=== PATIENT | female | born 1995 | race Caucasian/White ===

== ENCOUNTER → 2017-05-28 | Outpatient (CLI) | payer OTHER ==
[2017-05-28 12:26] LABS: URINE APPEARANCE CLEAR (CLEAR); URINE BILIRUBIN NEG (NEG); URINE COLOR DK YELLOW; URINE EPITHELIAL CELL AUTO >30 /lpf (0-5); URINE NITRITE NEG (NEG); URINE SPECIFIC GRAVITY 1.022 (1.000-1.030); UROBILINOGEN POS (NEG)
[2017-05-28 12:29] LABS: MANUAL MICROSCOPIC REQUIRED? NO; REVIEW REQ? NO
== END | disposition home or self-care (01) ==
LOC: C.LABSPEC 11:30
PROVIDERS: ATTEND Obstetrics & Gynecology
DX: Z34.01 Encounter for supervision of normal first pregnancy, first trimester (principal)

== ENCOUNTER → 2017-06-04 | Outpatient (CLI) | payer OTHER ==
[2017-06-07 02:27] LABS: CHLAMYDIA TRACH RNA*** NOT DETECTED (NOT DETECTED); GC (NEIS GONORRHOEAE)RNA** NOT DETECTED (NOT DETECTED)
== END | disposition home or self-care (01) ==
LOC: C.LABSPEC 18:05
PROVIDERS: ATTEND Obstetrics & Gynecology
DX: Z34.01 Encounter for supervision of normal first pregnancy, first trimester (principal)

== ENCOUNTER → 2017-07-04 | Outpatient (CLI) | payer OTHER ==
[2017-07-04 16:41] LABS: BASO % 0.1 %; BASO ABS # 0.01 K/uL (0-0.2); COMPLETE YES; EOS % 1.7 %; HEMATOCRIT 36.5 % (37-47); IG% 0.2 %; LYMPH % 25.4 %; MEAN CELL VOLUME 89.9 fL (80-100); MEAN CORPUSCULAR HGB CONC 34.5 g/dl (32-36); MEAN PLATELET VOLUME 12.1 fL (7.4-10.4); MONO % 6.4 %; NEUT % 66.2 %; PLATELET COUNT 174 K/uL (130-400); RED BLOOD COUNT 4.06 M/uL (4.2-5.4); WHITE BLOOD COUNT 8.26 K/uL (4.8-10.8)
== END | disposition home or self-care (01) ==
LOC: C.LAB1850 15:25
PROVIDERS: ATTEND Obstetrics & Gynecology
DX: Z34.01 Encounter for supervision of normal first pregnancy, first trimester (principal)

== ENCOUNTER → 2017-07-24 | Outpatient (CLI) | payer OTHER ==
[2017-07-24 13:34] LABS: GTGD 50 Grams
[2017-07-24 14:27] LABS: URINE APPEARANCE CLEAR (CLEAR); URINE BILIRUBIN NEG (NEG); URINE COLOR YELLOW; URINE EPITHELIAL CELL AUTO >30 /lpf (0-5); URINE NITRITE NEG (NEG); UROBILINOGEN NEG (NEG)
[2017-07-24 14:30] LABS: MANUAL MICROSCOPIC REQUIRED? NO; REVIEW REQ? NO
[2017-07-26 15:40] LABS: AFP CONCENTRATION 26.8 NG/ML; AFP MULTIPLE OF MEDIAN 0.91; AFPTS GESTATIONAL AGE 16.3 WEEKS; AFPTS INSULIN DEP DIABETIC? NO; AFPTS MATERNAL WT 184 LBS; ALPHA-FETOPROTEIN RACE CAUCASIAN=W; CIGARETTE SMOKER? NOT PROVIDED; EDD DETERMINED BY ULTRASOUND; HISTORY OF NTD NO; REPEAT SAMPLE? NO
== END | disposition home or self-care (01) ==
LOC: C.LAB1850 12:05
PROVIDERS: ATTEND Obstetrics & Gynecology
DX: Z34.02 Encounter for supervision of normal first pregnancy, second trimester (principal)

== ENCOUNTER → 2017-09-27 | Outpatient (CLI) | payer OTHER | END | disposition home or self-care (01) | LOC: C.LABSPEC 17:59 | PROVIDERS: ATTEND Obstetrics & Gynecology | DX: O99.320 Drug use complicating pregnancy, unspecified trimester (principal) ==

== ENCOUNTER → 2017-10-25 | Outpatient (CLI) | payer OTHER | END | disposition home or self-care (01) | LOC: C.LABSPEC 17:36 | PROVIDERS: ATTEND Obstetrics & Gynecology | DX: Z34.03 Encounter for supervision of normal first pregnancy, third trimester (principal) ==

== ENCOUNTER 2017-12-01 22:22 | Outpatient (CLI) | payer OTHER ==
[~2017-12-01] VITALS: Ht 167.6 cm; Wt 90.0 kg
[2017-12-01] MEDS ORDERED: BUPR8SUB19 SL (23:02)
[2017-12-01] MEDS ORDERED: PRENTAB26 PO (23:02)
[2017-12-01 23:04] VITALS: Ht 167.6 cm; Wt 90.0 kg
== END 2017-12-01 23:10 | disposition home or self-care (01) ==
LOC: C.LD 22:22 → C.OPB 22:22
PROVIDERS: ATTEND Obstetrics & Gynecology
DX: O36.8130 Decreased fetal movements, third trimester, not applicable or unspecified (principal); O36.8930 Maternal care for other specified fetal problems, third trimester, not applicable or unspecified; Z3A.34 34 weeks gestation of pregnancy

== ENCOUNTER 2017-12-24 10:48 | Outpatient (CLI) | payer OTHER ==
[~2017-12-24 10:48] MED LIST: BUPR8SUB19 SL; PRENTAB26 PO
[2017-12-24] MEDS ORDERED: ZNT/150 PO (11:11)
--- NOTE | 2017-12-24 12:28 | HISTORY & PHYSICAL EXAMINATION ---
DATE OF ADMISSION: 12/24/2017 CHIEF COMPLAINT: Ruptured membranes. HISTORY OF PRESENT ILLNESS: This is a 22-year-old G1, P0 with a brice intrauterine at 38 and 1/7 weeks gestation. The patient presents noting that she began leaking clear fluid at 6:30 a.m. yesterday, December 23. The patient initially thought she was simply leaking urine and ignored it over the course of the night. She noticed that her underwear were wet several times when she mentioned this to a home care nurse who visits with her this morning. The nurse said that this might be rupture of membranes and suggested she call for care. The patient contacted [facility] service which is where she had transferred her care. They advised her to come to the nearest facility to be checked for rupture of membranes, so [facility]. Of note, this patient's has been complicated by an abnormal ultrasound showing persistent right umbilical vein with signs of right heart enlargement and early heart failure. The patient has been followed with serial ultrasounds which so far have not demonstrated any hydrops. The patient additionally has depression with anxiety that is currently not medicated and she also has a drug dependence on Subutex. ALLERGIES: INCLUDE BACTRIM AND CIPROFLOXACIN. CURRENT MEDICATIONS: Prenatals, Subutex. PAST MEDICAL HISTORY: The patient had a heart murmur at herself. She has frequent UTIs, acid reflux, depression and anxiety and a history of pelvic inflammatory disease as well as a history of varicella. PAST SURGICAL HISTORY: None noted. SOCIAL HISTORY: The patient has been using Subutex for over a year. She additionally is a quarter pack per day smoker during and she is currently single, though the father of the baby is involved. PHYSICAL EXAMINATION: VITAL SIGNS: See QS. GENERAL: The patient generally is alert and in no acute distress, seated in semi-[place]eg[place]'s in the labor and delivery bed. HEART: Shows regular rate and rhythm. LUNGS: Clear to auscultation bilaterally. ABDOMEN: Gravid, appropriate for gestational age with no palpable contractions. Cervical vaginal exam shows a cervix that is fingertip dilated at most and 50% effaced at most. Leakage of fluid is not grossly evident, but is confirmed by a positive AmniSure test. Moisture on the pads appears to be clear in color per nurses. Initially on presentation, the patient's heart tones were approximately 120 with moderate variability, but no accels, no decels. Following the cervical exam, the fetus evidently awoke, adequate sleep cycle and has since been very reactive with frequent accelerations and no decels. TOCO shows irregular, low amplitude activity, varying from 2-8 minutes; however, these are not appreciated by the patient and do not palpate. ASSESSMENT AND PLAN: This is a 22-year-old G1, P0 who presents with a brice intrauterine at 38+ weeks with premature rupture of membranes and a known cardiac anomaly. The patient was planning to deliver at [facility] in order to avoid being from her in the event that it needs NICU care or observation as we do not have a NICU here at [facility]. The patient does desire transfer to [facility] as long as this can safely be accomplished without air transport. I do feel that given she is not actively laboring right now, the patient can be safely transferred by ground. The patient's care was discussed with Dr. Gillian Giles of [facility], who has accepted the care of the patient in transfer and the patient is in agreement with leaving by ambulance to go to [facility] now. Of note, Dr. Giles did not request that the patient be given any medications or any particular start to her care prior to departing [facility]. She is also able to share with me that they know the patient is group B strep negative with testing that has been done after the patient had transferred her care to [place].
== END 2017-12-24 11:44 | disposition short-term general hospital (02) ==
LOC: C.OPB 10:48 → C.LD 10:49 → C.OPB 11:44 → EDSTATUS 01-06 10:47
PROVIDERS: ATTEND Obstetrics & Gynecology
DX: O42.913 Preterm premature rupture of membranes, unspecified as to length of time between rupture and onset of labor, third trimester (principal); O36.8930 Maternal care for other specified fetal problems, third trimester, not applicable or unspecified; Z3A.38 38 weeks gestation of pregnancy; Z88.1 Allergy status to other antibiotic agents

== ENCOUNTER → 2018-03-20 | Outpatient (CLI) | payer OTHER ==
[~2018-03-20] MED LIST changes: +ZNT/150 PO
== END | disposition home or self-care (01) ==
LOC: C.LABSPEC 17:59
PROVIDERS: ATTEND Obstetrics & Gynecology
DX: R35.0 Frequency of micturition (principal)